=== PATIENT | male | born 1980 | race Caucasian/White ===

== ENCOUNTER 2017-10-23 06:17 | Day surgery (SDC) | payer OTHER ==
--- NOTE | 2017-10-19 10:32 | RADIOLOGY REPORT (SQ) ---
EXAM DESCRIPTION: CHEST PA/LATERAL COMPLETED DATE/TIME: 10/19/2017 10:12 am REASON FOR STUDY: PRE-OP COMPARISON: 02/09/2016 EXAM PARAMETERS: NUMBER OF VIEWS: two views TECHNIQUE: Digital Frontal and Lateral radiographic views of the chest acquired. RADIATION DOSE: NA LIMITATIONS: none FINDINGS: LUNGS AND PLEURA: No opacities, masses or pneumothorax. No pleural effusion. MEDIASTINUM AND HILAR STRUCTURES: No masses or contour abnormalities. HEART AND VASCULAR STRUCTURES: Heart normal size. No evidence for failure. BONES: No acute findings. HARDWARE: None in the chest. OTHER: No other significant finding. IMPRESSION: NO SIGNIFICANT RADIOGRAPHIC FINDING IN THE CHEST. TECHNICAL DOCUMENTATION: JOB ID: [id number] [employer]- All Rights Reserved
[2017-10-19 11:10] LABS: APPEARANCE,URINE CLEAR; BILIRUBIN,URINE NEGATIVE (NEGATIVE); GLUCOSE, URINE NEGATIVE (NEGATIVE); KETONES,URINE NEGATIVE (NEGATIVE); LEUKOCYTE ESTERASE,URINE NEGATIVE (NEGATIVE); NITRITE,URINE NEGATIVE (NEGATIVE); PROTEIN,URINE NEGATIVE (NEGATIVE); URINE SPECIFIC GRAVITY 1.016; UROBILINOGEN,URINE NEGATIVE mg/dL (<2.0)
[2017-10-19 11:15] LABS: HEMOGLOBIN 14.3 g/dL (13.5-17.0); HGB HCT DIFFERENCE 0.9; MEAN CORPUSCULAR HEMOGLOBIN 28.9 pg (27.0-33.4); MEAN CORPUSCULAR VOLUME 85 fl (80-97); RED BLOOD COUNT 4.94 10^6/uL (4.35-5.55); WHITE BLOOD COUNT 5.1 10^3/uL (4.0-10.5)
[2017-10-19 11:20] LABS: PROTHROMBIN TIME 12.9 SEC (11.4-15.4)
--- NOTE | 2017-10-19 13:37 | EKG REPORT ---
SEVERITY:- NORMAL ECG - SINUS RHYTHM : Confirmed by: Dixie Magdaleno 19-Oct-2017 13:37:07
[~2017-10-23 06:17] MED LIST: CEFAZOLIN 1 GM/D5W RTU 1 GM/50 ML RTUPB IV PRN; LACTATED RINGERS 1000 ML IV PRN; LIDOCAINE 0.5% INJ-PF (5 MG/ML) 50 ML SDV SUBCUT PRN
[2017-10-23] MEDS ORDERED: LIDOCAINE 1% INJ-PF (10 MG/ML) 30 ML SDV ONE (06:40)
[2017-10-23] MEDS ORDERED: SODIUM BICARBONATE 8.4% INJ 50 MEQ/50 ML DISP.SYRIN ONE (06:40)
[2017-10-23] MEDS ORDERED: BUPIVACAINE HCL 0.25% /EPINEPHRINE INJ/PF 30 ML SDV ONE (06:40)
[2017-10-23] MEDS ORDERED: KETAMINE HCL INJ 500 MG/10 ML VIAL ONE (07:42)
[2017-10-23] MEDS ORDERED: FENTANYL CITRATE INJ/PF 100 MCG/2 ML AMPUL ONE (07:42)
[2017-10-23] MEDS ORDERED: MIDAZOLAM 2 MG/2 ML INJ ONE ×2 (07:42→07:43)
[2017-10-23] MEDS ORDERED: PROPOFOL INJ 200 MG/20 ML VIAL IV ONE (07:43)
[2017-10-23] MEDS ORDERED: OXYCODONE-ACETAMINOPHEN 5-325 MG TABLET PO PRN ×3 (08:53→09:51)
[2017-10-23] MEDS ORDERED: MEPERIDINE HCL/PF INJ 25 MG/1 ML DISP.SYRIN IV PRN (08:53)
[2017-10-23] MEDS ORDERED: DIPHENHYDRAMINE HCL 50 MG/ML VIAL IV PRN (08:53)
[2017-10-23] MEDS ORDERED: FENTANYL CITRATE INJ/PF 100 MCG/2 ML AMPUL IV PRN ×3 (08:53)
[2017-10-23] MEDS ORDERED: MORPHINE SULFATE 10 MG/ML INJ IV PRN (08:53)
[2017-10-23] MEDS ORDERED: PROMETHAZINE HCL INJ 25 MG/1 ML VIAL IV PRN ×2 (08:53)
[2017-10-23] MEDS ORDERED: CEFAZOLIN INJ 1 GM VIAL ONE (09:49)
[2017-10-23] MEDS ORDERED: ONDANSETRON HCL INJ/PF 4 MG/2 ML SDV IV PRN (09:51)
--- NOTE | 2017-10-23 10:43 | OPERATIVE REPORT E ---
Operative Report NAME: VITALY AMATO : 1980 AGE: 37Y DATE OF SURGERY: 10/23/2017 ROOM: PREOPERATIVE DIAGNOSIS: Lumbar radiculopathy with chronic intractable pain. POSTOPERATIVE DIAGNOSIS: Lumbar radiculopathy with chronic intractable pain. OPERATIVE PROCEDURE: Surgical implantation of right and left lumbar and thoracic spinal cord stimulator electrodes using [employer] and implantation of programmable rechargeable pulse generator, fluoroscopy for needle placement, and complex analysis and programming. SURGEON: ABHAY LUIS M.D. CAPITAL PROJECT ENGINEER: Dr. Rylee Roth INDICATIONS: Successful outpatient trial for chronic intractable pain. COMPLICATIONS: None. BLOOD LOSS: Minimal. ANESTHESIA: MAC SPECIMENS/BIOPSIES: None. PROCEDURE NOTE: After obtaining informed consent and advising the patient of the risks and benefits including serious neurological injury, bleeding, infection, allergic reaction, , failure to obtain good pain relief, paralysis, and dissatisfaction with skilled nursing outcome, patient was taken to the operating room and placed comfortably in the prone position. Monitors were applied and MAC anesthesia was administered. He was prepped in the appropriate fashion with chlorhexidine and appropriate drying team. He was then draped. Using fluoroscopy, the thoracic and lumbar spine was identified. Entrance site to the T12-L1 interspace was identified. At the predetermined sites over the gluteal region and lumbar region, incisions were made after local anesthesia with 1% lidocaine with bicarb were applied followed by 0.25% bupivacaine with epinephrine. Sharp and blunt dissection was performed in each region to obtain suitable working areas. The lumbar fascia was identified in the midline incision. Once suitable area for working in the entrance into the epidural space was felt to be present, the tracts for the interposed epidural needles were then anesthetized with 1% lidocaine. This was down to the T12-L1 interspace. The 14 gauge Tuohy needle beginning on the left followed by the right were inserted using loss to resistance to saline technique. The space was entered easily. No hematuria, cerebrospinal fluid, and paresthesias were noted. The leads were then advanced through each needle and checked multiple times with correct placement with some adjustment necessary to assure midline paramedian location of both leads as well as being in the posterior epidural space. The leads were advanced up to the mid top third of T7 and trial of stimulation was then initiated. Stimulation was present in all desired locations. The decision was made to proceed with the implant. Then 0 Mersilene and pursestrings were placed around each needle followed by a distal stay suture for the anchor. Beginning on the right side, the needle was removed with care being taken not to dislodge the electrode. Pursestring was secured after placement of the anchor. It was then secured to the anchor. A distal stay suture was then secured to the anchor as well. A hex nut for the anchor was then secured as well. Position of the lead was checked and felt to be satisfactory. This was repeated on the left. Once both leads were securely anchored, they were tunneled to the pocket which was created by Dr. Rylee Roth and again hemostasis was obtained with electrocautery as necessary. The leads were tunneled with ease through the pocket and connected to the pulse generator. Connectivity was assessed and found to be satisfactory with good impedances and good connection to the sql programmer analyst. All wounds were then copiously irrigated and inspected for hemostasis. The leads were coiled in both regions. The generator was placed in the pocket with the labeling facing the skin. The skin was then closed with interrupted vertical mattress sutures using 3-0 Polysorb. All skin edges came nicely together. The skin was then sealed with Dermabond tape and cement followed by Telfa and OpSite sponge dressings. He was then taken to the PACU for further postoperative care and monitoring. DICTATING PHYSICIAN: ABHAY LUIS M.D. [id number] PHY#: [id number] ID: [id number] JOB#: [id number] ACCT: [id number] cc:ABHAY LUIS M.D. >
[2017-10-23 11:20] VITALS: BP 147/97
--- NOTE | 2017-10-23 14:09 | RADIOLOGY REPORT (SQ) ---
EXAM DESCRIPTION: THORACOLUMBAR SPINE AP/LAT; NO CHG FLUORO COMPLETED DATE/TIME: 10/23/2017 1:55 pm REASON FOR STUDY: SPINAL STIMULATOR PLCMT ASSISTED WITH FLUORO IN OR G89.4 CHRONIC PAIN SYNDROME COMPARISON: MRI lumbar spine 11/23/2015 FLUOROSCOPY TIME: 6.7 minutes 15 digital images saved to PACS. TECHNIQUE: Intra-operative images acquired during surgical procedure to evaluate progress. NUMBER OF IMAGES: 15 fluoroscopic images. LIMITATIONS: None. FINDINGS: Intra procedural fluoro and imaging during placement of neurostimulator electrodes over th e lower thoracic spine. Please see the operative report for further details IMPRESSION: Intra procedural imaging and fluoro COMMENT: Quality ID [id number]: Final reports for procedures using fluoroscopy that document radiation exp osure indices, or exposure time and number of fluorographic images (if radiation exposure indices are not available) Please consult full operative report of the attending physician for description of the procedure. TECHNICAL DOCUMENTATION: JOB ID: [id number] [employer]- All Rights Reserved
== END 2017-10-23 11:20 | disposition home or self-care (01) ==
LOC: OROUT 06:17
PROVIDERS: ATTEND Pain Medicine Interventional Pain Medicine
DX: M54.16 Radiculopathy, lumbar region (principal); G89.4 Chronic pain syndrome; M19.90 Unspecified osteoarthritis, unspecified site; Z79.899 Other long term (current) drug therapy; Z79.891 Long term (current) use of opiate analgesic
CPT/HCPCS: 93005; 36415; 85027; 85610; 85730; 81001; 71020; 72080; 93010; 63685; 63650; C1820; J2250; J3490 ×4; J0690 ×2; J3010; J2704